=== PATIENT | male | born 1975 | race Caucasian/White ===

== ENCOUNTER 2019-05-08 20:31 | Emergency (ER) | payer OTHER ==
[~2019-05-08] VITALS: Ht 180.3 cm; Wt 79.5 kg
[2019-05-08 20:35] VITALS: BP 120/72
== END 2019-05-09 00:45 | disposition left against medical advice (07) ==
LOC: EMS 20:32
DX: R07.89 Other chest pain (principal); R12 Heartburn
CPT/HCPCS: 93005